=== PATIENT | female | born 1955 | race Caucasian/White ===

== ENCOUNTER 2024-06-30 15:03 | Outpatient (CLI) | payer MEDICARE, BC, SELFPAY ==
--- NOTE | 2024-06-30 15:00 | CRLHL7_ITS ---
For Patients: As a result of the Century Cures Act, medical imaging exams and procedure reports are released immediately into your electronic medical record. You may view this report before your referring provider. If you have questions, please contact your health care provider. INDICATION: Pelvic fullness COMPARISON: none TECHNIQUE: 2D early scale and color Doppler images were acquired of the pelvis using a transabdominal and transvaginal approach. FINDINGS: Multiple calcified uterine fibroids are present. Intramural fibroids are present measuring 13 x 15 x 16 millimeters and 12 x 11 x 10 millimeters. Partially exophytic fibroid arising from the lower posterior uterus measures 3.3 x 2.8 x 2.9 cm. Uterus measures 5.0 cm in length by 2.5 cm in AP diameter by 3.4 cm in transverse dimension. Endometrium measures 1.6 millimeters. Trace amount of fluid within the endometrial canal. The ovaries are not visualized. There are no suspicious fluid collections within the cul-de-sac. IMPRESSION: Multiple calcified uterine fibroids measuring up to 3.3 cm. Dictated by Robinson Box MD @ 07/01/2024 9:09:29 AM (Electronically Signed)
== END 2024-06-30 15:04 | disposition home or self-care (01) ==
LOC: US 15:03
PROVIDERS: PCP Family Medicine; Visit Provider Obstetrics & Gynecology
DX: R19.8 Other specified symptoms and signs involving the digestive system and abdomen (principal); D25.9 Leiomyoma of uterus, unspecified
CPT/HCPCS: 76830; 76856